=== PATIENT | male | born 1975 | race American Indian/Alaskan Native ===

== ENCOUNTER 2018-02-19 08:45 | Emergency (ER) | payer SELFPAY ==
[2018-02-19 09:23] LABS: Basophils % (Auto) 0.4 % (0.0-1.8); Eosinophils % (Auto) 0.2 % (0.0-4.3); Hematocrit 48.7 % (35.5-45.6); Hemoglobin 16.2 gm/dl (11.8-15.2); Lymphocytes # (Auto) 1.1 K/mm3 (1.2-5.4); Lymphocytes % (Auto) 10.7 % (13.4-35.0); Mean Corpuscular HGB Conc 33 % (32-34); Mean Corpuscular Hemoglobin 30 pg (28-32); Mean Corpuscular Volume 91 fl (84-94); Monocytes # (Auto) 0.8 K/mm3 (0.0-0.8); Monocytes % (Auto) 7.5 % (0.0-7.3); Platelet Count 328 K/mm3 (140-440); Red Blood Count 5.36 M/mm3 (3.65-5.03); Red Cell Distribution Width 13.1 % (13.2-15.2)
[2018-02-19 09:52] LABS: Bilirubin,Urine NEG (Negative); Blood,Urine NEG (Negative); Color,Urine Amber (Yellow); Granular Casts,Urine 6 /LPF; Mucus,Urine FEW /HPF
[2018-02-19 10:40] LABS: Alanine Aminotransferase 9 units/L (7-56); Albumin 4.6 g/dL (3.9-5); BUN/Creatinine Ratio 16; Blood Urea Nitrogen 16 mg/dL (9-20); Hemolysis Index 20
[2018-02-19 10:50] LABS: Lipase 461 units/L (13-60)
[2018-02-19] MEDS ORDERED: NORCO 5/325 PO ONE (15:39)
[2018-02-19] MEDS ORDERED: ZOFRAN ODT PO ONE (15:39)
[2018-02-19 15:55] VITALS: BP 141/101
[2018-02-19] MEDS ORDERED: TORADOL IV ONE ×2 (22:26→22:46)
[2018-02-19] MEDS ORDERED: ZOFRAN ONE (22:45)
[2018-02-19] MEDS ORDERED: ZOFRAN IV ONE (22:46)
--- NOTE | 2018-02-20 00:27 | Cat Scan Report ---
FINAL REPORT EXAM: CT ABDOMEN PELVIS W CON HISTORY: Abdominal pain TECHNIQUE: CT evaluation performed of the abdomen and pelvis following IV contrast administration. Additional axial delayed images were obtained. Coronal and sagittal reformatted images were provided. PRIORS: CT dated 09/13/2016. FINDINGS: Lower thorax: The lung bases are clear. The visualized portions of the heart are normal. Liver: No focal lesions identified of the liver. No intrahepatic biliary ductal dilation. Gallbladder/ biliary system: No cholelithiasis. No extrahepatic biliary ductal dilation. Spleen: No splenic lesions are seen. Pancreas: The pancreas is diffusely edematous and enlarged with marked adjacent intra-abdominal free fluid. There is no focal peripherally enhancing fluid collection, and glandular enhancement pattern appears mildly globally decreased without focal area of nonenhancement. Kidneys: No kidney lesions identified. No hydronephrosis. No ureteral or renal calcifications. Ureters are unremarkable. Adrenal glands: No adrenal masses. Vasculature: The abdominal and pelvic vasculature demonstrates a normal noncontrasted appearance. The splenic artery is patent. Bowel, mesentery, peritoneum: No bowel obstruction. No colonic diverticulosis. The appendix is incompletely evaluated however there is no right lower quadrant inflammatory change. Moderate volume free intraperitoneal low-attenuation fluid. Urinary bladder: No calculi or wall thickening. Abdominal wall: No abdominal wall hernia or subcutaneous findings. Bones: No acute osseous abnormality. IMPRESSION: Diffuse enlargement of the pancreatic gland with mild global hypoenhancement and adjacent edema about the gland, anterior pararenal space and extending into the dependent pelvis. No focal nonenhancement to suggest pancreatic necrosis or adjacent peripherally enhancing fluid collection. Correlation with clinical history and laboratory values requested.
[2018-02-20] MEDS ORDERED: NACL 0.9% 1000 ML 1,000 ML IV ONE (00:57)
--- NOTE | 2018-02-20 01:04 | Emergency Department Report ---
ED Abdominal Pain HPI - General Chief Complaint: Abdominal Pain Stated Complaint: ABD PAIN Time Seen by Provider: 02/20/18 00:58 Source: patient Mode of arrival: Ambulatory Limitations: No Limitations - History of Present Illness Initial Comments: Patient is a 42-year-old male with a history of pancreatitis 2 years who presents to ED complaining of abdominal pain and nausea and vomiting 3 days. Patient states for the past 3 days has been having generalized abdominal pain with nausea and inability to keep foods down. Patient states that would have a little bit of water but could not keep it down. He denies fevers/chills/ diarrhea or constipation. Patient states he does not take any medication does not have a primary care doctor at the moment. MD Complaint: abdominal pain Severity scale (0 -10): 1 - Related Data Previous Rx's Medication Instructions Recorded Last Taken Type Folic Acid [Folvite] 1 mg PO QDAY #30 tablet 09/14/16 Unknown Rx Ondansetron [Zofran Odt] 4 mg PO Q8HR PRN #15 tab.rapdis 09/14/16 Unknown Rx Thiamine [Vitamin B-1] 100 mg PO QDAY #30 tablet 09/14/16 Unknown Rx HYDROcodone/APAP 5-325 [[place] 1 each PO Q6HR PRN #20 tablet 02/20/18 Unknown Rx 5/325] Multivitamin Tab [Multiple Vitamin 1 each PO QDAY #30 tablet 02/20/18 Unknown Rx TAB (Theragran)] Naproxen [Naprosyn] 500 mg PO BID #40 tablet 02/20/18 Unknown Rx Ondansetron [Zofran TAB] 8 mg PO Q8HR PRN #40 tablet 02/20/18 Unknown Rx Allergies Allergy/AdvReac Type Severity Reaction Status Date / Time No Known Allergies Allergy Unverified 09/13/16 16:12 ED Review of Systems ROS: Stated complaint: ABD PAIN Other details as noted in HPI Constitutional: denies: chills, fever Eyes: denies: eye pain, eye discharge, vision change ENT: denies: ear pain, throat pain Respiratory: denies: cough, shortness of breath, wheezing Cardiovascular: denies: chest pain, palpitations Endocrine: no symptoms reported Gastrointestinal: denies: abdominal pain, nausea, diarrhea Genitourinary: denies: urgency, dysuria Musculoskeletal: denies: back pain, joint swelling, arthralgia Skin: denies: rash, lesions Neurological: denies: headache, weakness, paresthesias Psychiatric: denies: anxiety, depression Hematological/Lymphatic: denies: easy bleeding, easy bruising ED Past Medical Hx - Past Medical History Previous Medical History?: Yes Additional medical history: pancreatitis - Surgical History Past Surgical History?: No - Social History Smoking Status: Current Every Day Smoker Substance Use Type: Alcohol, Marijuana - Medications Home Medications: Home Medications Medication Instructions Recorded Confirmed Last Taken Type Folic Acid [Folvite] 1 mg PO QDAY #30 tablet 09/14/16 Unknown Rx Ondansetron [Zofran Odt] 4 mg PO Q8HR PRN #15 tab.rapdis 09/14/16 Unknown Rx Thiamine [Vitamin B-1] 100 mg PO QDAY #30 tablet 09/14/16 Unknown Rx HYDROcodone/APAP 5-325 [[place] 1 each PO Q6HR PRN #20 tablet 02/20/18 Unknown Rx 5/325] Multivitamin Tab [Multiple Vitamin 1 each PO QDAY #30 tablet 02/20/18 Unknown Rx TAB (Theragran)] Naproxen [Naprosyn] 500 mg PO BID #40 tablet 02/20/18 Unknown Rx Ondansetron [Zofran TAB] 8 mg PO Q8HR PRN #40 tablet 02/20/18 Unknown Rx ED Physical Exam - General Limitations: No Limitations General appearance: alert, in no apparent distress - Head Head exam: Present: atraumatic, normocephalic - Eye Eye exam: Present: normal appearance - ENT ENT exam: Present: mucous membranes moist - Neck Neck exam: Present: normal inspection - Respiratory Respiratory exam: Present: normal lung sounds bilaterally. Absent: respiratory distress - Cardiovascular Cardiovascular Exam: Present: regular rate, normal rhythm. Absent: systolic murmur, diastolic murmur, rubs, gallop - GI/Abdominal GI/Abdominal exam: Present: soft, normal bowel sounds - Rectal Rectal exam: Present: deferred - Extremities Exam Extremities exam: Present: normal inspection - Back Exam Back exam: Present: normal inspection - Neurological Exam Neurological exam: Present: alert, oriented X3 - Psychiatric Psychiatric exam: Present: normal affect, normal mood - Skin Skin exam: Present: warm, dry, intact, normal color. Absent: rash ED Course Vital Signs 02/19/18 02/19/1802/19/18 09:03 15:45 16:53 Temperature 97.6 F 98.3 F Pulse Rate 102 H 104 H Respiratory 18 16 18 Rate Blood Pressure 138/92 Blood Pressure 141/101 [Right] O2 Sat by Pulse 100 100 Oximetry 02/19/18 22:54 Temperature Pulse Rate Respiratory 18 Rate Blood Pressure Blood Pressure [Right] O2 Sat by Pulse Oximetry - Reevaluation(s) Reevaluation #1: Patient is resting comfortably in his ED. Stable, states pain is resolved Abdominal examination shows no guarding, nontender to palpation in all quadrants No active vomiting 02/20/18 01:03 Reevaluation #2: Patient received 250 mg of Toradol IV. Patient is still stable in no acute distress no vomiting noted. Abdomen exam still norm, no fever vital signs stable 02/20/18 02:15 ED Medical Decision Making - Lab Data Result diagrams: 02/19/18 09:08 02/19/18 09:08 Lab Results 02/19/18 02/19/18 02/19/18 Range/Units 09:08 09:08 Unknown WBC 10.7 (4.5-11.0) K/mm3 RBC 5.36 H (3.65-5.03) M/mm3 Hgb 16.2 H (11.8-15.2) gm/dl Hct 48.7 H (35.5-45.6) % MCV 91 (84-94) fl MCH 30 (28-32) pg MCHC 33 (32-34) % RDW 13.1 L (13.2-15.2) % Plt Count 328 (140-440) K/mm3 Lymph % (Auto) 10.7 L (13.4-35.0) % [place] % (Auto) 7.5 H (0.0-7.3) % Eos % (Auto) 0.2 (0.0-4.3) % Baso % (Auto) 0.4 (0.0-1.8) % Lymph # 1.1 L (1.2-5.4) K/mm3 [place] # 0.8 (0.0-0.8) K/mm3 Eos # 0.0 (0.0-0.4) K/mm3 Baso # 0.0 (0.0-0.1) K/mm3 Seg Neutrophils % 81.2 H (40.0-70.0) % Seg Neutrophils # 8.7 H (1.8-7.7) K/mm3 Sodium 139 (137-145) mmol/L Potassium 3.8 (3.6-5.0) mmol/L Chloride 87.4 L (98-107) mmol/L Carbon Dioxide 28 (22-30) mmol/L Anion Gap 27 mmol/L BUN 16 (9-20) mg/dL Creatinine 1.0 (0.8-1.5) mg/dL Estimated GFR > 60 ml/min BUN/Creatinine Ratio 16 % Glucose 136 H (75-100) mg/dL Calcium 10.0 (8.4-10.2) mg/dL Total Bilirubin 0.40 (0.1-1.2) mg/dL AST 17 (5-40) units/L ALT 9 (7-56) units/L Alkaline Phosphatase 87 (35-129) units/L Total Protein 9.0 H (6.3-8.2) g/dL Albumin 4.6 (3.9-5) g/dL Albumin/Globulin Ratio 1.0 % Lipase 461 H (13-60) units/L Urine Color Jade (Yellow) Urine Turbidity Clear (Clear) Urine pH 5.0 (5.0-7.0) Ur Specific [place] 1.029 (1.003-1.030) Urine Protein 100 mg/dl (Negative) mg/dL Urine Glucose (UA) Neg (Negative) mg/dL Urine Ketones 20 (Negative) mg/dL Urine Blood Neg (Negative) Urine Nitrite Neg (Negative) Urine Bilirubin Neg (Negative) Urine Urobilinogen 2.0 (<2.0) mg/dL Ur Leukocyte Esterase Sm (Negative) Urine WBC (Auto) 24.0 H (0.0-6.0) /HPF Urine RBC (Auto) 5.0 (0.0-6.0) /HPF U Epithel Cells (Auto) 2.0 (0-13.0) /HPF Granular Casts 6 /LPF Urine Mucus Few /HPF - Radiology Data Radiology results: report reviewed, image reviewed - Medical Decision Making 42-year-old male presents with acute on chronic pancreatitis ED course: Patient received 1 L normal saline, and medication and Zofran for nausea CBC, CMP, urinalysis, CT scan all ordered No white count shown, lipase elevated greater than 400, CT scan as reported above Critical care attestation.: If time is entered above; I have spent that time in minutes in the direct care of this critically ill patient, excluding procedure time. ED Disposition Clinical Impression: Chronic pancreatitis Qualifiers: Pancreatitis type: unspecified pancreatitis type Qualified Code(s): K86.1 - Other chronic pancreatitis Disposition: TO HOME OR SELFCARE Is pt being admited?: No Does the pt Need Aspirin: No Condition: Stable Instructions: Pancreatitis (ED), Dehydration (ED) Additional Instructions: Make sure to follow up with the primary care physician as discussed. Take all your medications as you've been prescribed. If you have any worsening symptoms or develop new symptoms please return to ED immediately. Prescriptions: HYDROcodone/APAP 5-325 [[place] 5/325] 1 each PO Q6HR PRN #20 tablet PRN Reason: Pain Multivitamin Tab [Multiple Vitamin TAB (Theragran)] 1 each PO QDAY #30 tablet Naproxen [Naprosyn] 500 mg PO BID #40 tablet Ondansetron [Zofran TAB] 8 mg PO Q8HR PRN #40 tablet PRN Reason: Nausea Referrals: MARYBEL WHALEY MD [Primary Care Provider] - 3-5 Days [facility] [Provider Group] - 3-5 Days [facility] [Provider Group] - 3-[address] [facility] [place] [Outside] - 3-5 Days [facility] [Outside] - 3-5 Days [facility] [Outside] - 3-5 Days Forms: Accompanied Note, Work/School Release Form(ED) Time of Disposition: 02:20
[2018-02-20] MEDS ORDERED: TORADOL IV ONE (02:08)
== END 2018-02-20 02:45 | disposition home or self-care (01) ==
LOC: ED 08:45
DX: K86.1 Other chronic pancreatitis (principal); F17.200 Nicotine dependence, unspecified, uncomplicated; F12.10 Cannabis abuse, uncomplicated
CPT/HCPCS: 36415; 74177; 80053; 81001; 83690; 85025; 96361; 96374; 96375; 99284; J1885; J2405; J7030; Q9967; Q0162

== ENCOUNTER 2020-04-15 13:22 | Inpatient (IN) | payer SELFPAY ==
[2020-04-15 15:13] LABS: Bacteria,Urine 1+ /HPF (Negative); Bilirubin,Urine NEG (Negative); Blood,Urine SM (Negative); Color,Urine Yellow (Yellow); Mucus,Urine FEW /HPF; Urobilinogen,Urine < 2.0 mg/dL (<2.0)
[2020-04-15] MEDS ORDERED: MORPHINE 4 MG/1 ML INJ IV ONE ×2 (15:33→17:55)
[2020-04-15] MEDS ORDERED: ONDANSETRON 4 MG/2 ML INJ IV ONE (15:33)
[2020-04-15] MEDS ORDERED: SODIUM CHLORIDE 0.9% 1000 ML 1,000 ML IV ONE (15:33)
--- NOTE | 2020-04-15 15:43 | Emergency Department Report ---
ED Abdominal Pain HPI - General Chief Complaint: Abdominal Pain Stated Complaint: N/V/ABD PAIN Time Seen by Provider: 04/15/20 15:33 Source: patient Mode of arrival: Ambulatory Limitations: No Limitations - History of Present Illness Initial Comments: This is a 44-year-old male nontoxic, well nourished in appearance, no acute signs of distress presents to the ED with c/o of nausea and vomiting and abdominal pain 2 days. Patient describes vomiting as food content and yellow gastric acid. Patient describes abdominal pain as cramping and aching with level of 10/10 to left upper abdomen. Patient denies chest pain, short of breath, fever, hemoptysis, blood in stool, chills, headache, stiff neck, numbness or tingling. Patient denies any diarrhea or constipation. Denies any blood in stool. Patient denies any recent travels. Patient stated hx of pancreatitis and pain is similar. Patient stated her last alcoholic drink 5 days ago. Patient denies any drug allergies. MD Complaint: abdominal pain -: days(s) (2) Location: LUQ Radiation: none Migration to: no migration Severity: mild Severity scale (0 -10): 10 Quality: cramping, aching Consistency: constant Improves With: nothing Worsens With: nothing Associated Symptoms: nausea, vomiting. denies: diarrhea, fever, chills, constipation, dysuria, hematemesis, hematochezia, melena, hematuria, anorexia, syncope - Related Data Previous Rx's Medication Instructions Recorded Last Taken Type Folic Acid [Folvite] 1 mg PO QDAY #30 tablet 09/14/16 Unknown Rx Ondansetron [Zofran Odt] 4 mg PO Q8HR PRN #15 tab.rapdis 09/14/16 Unknown Rx Thiamine [Vitamin B-1] 100 mg PO QDAY #30 tablet 09/14/16 Unknown Rx HYDROcodone/APAP 5-325 [[place] 1 each PO Q6HR PRN #20 tablet 02/20/18 Unknown Rx 5/325] Multivitamin Tab [Multiple Vitamin 1 each PO QDAY #30 tablet 02/20/18 Unknown Rx TAB (Theragran)] Naproxen [Naprosyn] 500 mg PO BID #40 tablet 02/20/18 Unknown Rx Ondansetron (Nf) [Zofran TAB] 8 mg PO Q8HR PRN #40 tablet 02/20/18 Unknown Rx Allergies Allergy/AdvReac Type Severity Reaction Status Date / Time No Known Allergies Allergy Verified 04/15/20 14:21 ED Review of Systems ROS: Stated complaint: N/V/ABD PAIN Other details as noted in HPI Constitutional: denies: chills, fever Eyes: denies: eye pain, eye discharge, vision change ENT: denies: ear pain, throat pain Respiratory: denies: cough, shortness of breath, wheezing Cardiovascular: denies: chest pain, palpitations Endocrine: no symptoms reported Gastrointestinal: abdominal pain, nausea, vomiting. denies: diarrhea, constipation, hematemesis, melena, hematochezia Genitourinary: denies: urgency, dysuria Musculoskeletal: denies: back pain, joint swelling, arthralgia Skin: denies: rash, lesions Neurological: denies: headache, weakness, paresthesias Psychiatric: denies: anxiety, depression Hematological/Lymphatic: denies: easy bleeding, easy bruising ED Past Medical Hx - Past Medical History Previous Medical History?: Yes Additional medical history: pancreatitis - Surgical History Past Surgical History?: No - Social History Smoking Status: Current Every Day Smoker Substance Use Type: Alcohol - Medications Home Medications: Home Medications Medication Instructions Recorded Confirmed Last Taken Type Folic Acid [Folvite] 1 mg PO QDAY #30 tablet 09/14/16 Unknown Rx Ondansetron [Zofran Odt] 4 mg PO Q8HR PRN #15 tab.rapdis 09/14/16 Unknown Rx Thiamine [Vitamin B-1] 100 mg PO QDAY #30 tablet 09/14/16 Unknown Rx HYDROcodone/APAP 5-325 [[place] 1 each PO Q6HR PRN #20 tablet 02/20/18 Unknown Rx 5/325] Multivitamin Tab [Multiple Vitamin 1 each PO QDAY #30 tablet 02/20/18 Unknown Rx TAB (Theragran)] Naproxen [Naprosyn] 500 mg PO BID #40 tablet 02/20/18 Unknown Rx Ondansetron (Nf) [Zofran TAB] 8 mg PO Q8HR PRN #40 tablet 02/20/18 Unknown Rx ED Physical Exam - General Limitations: No Limitations General appearance: alert, in no apparent distress - Head Head exam: Present: atraumatic, normocephalic - Eye Eye exam: Present: normal appearance - Neck Neck exam: Present: normal inspection, full ROM. Absent: tenderness, meningismus, lymphadenopathy - Respiratory Respiratory exam: Present: normal lung sounds bilaterally. Absent: respiratory distress, wheezes, rales, rhonchi, stridor, chest wall tenderness, accessory muscle use, decreased breath sounds, prolonged expiratory - Cardiovascular Cardiovascular Exam: Present: regular rate, normal rhythm, normal heart sounds. Absent: irregular rhythm, systolic murmur, diastolic murmur, rubs, gallop - GI/Abdominal GI/Abdominal exam: Present: soft, tenderness (LUQ), normal bowel sounds. Absent: distended, guarding, rebound, rigid, diminished bowel sounds - Extremities Exam Extremities exam: Present: normal inspection, full ROM - Back Exam Back exam: Present: normal inspection, full ROM. Absent: tenderness, CVA te nderness (R), CVA tenderness (L), muscle spasm, paraspinal tenderness, vertebral tenderness, rash noted - Neurological Exam Neurological exam: Present: alert, oriented X3, normal gait - Psychiatric Psychiatric exam: Present: normal affect, normal mood - Skin Skin exam: Present: warm, dry, intact, normal color. Absent: rash ED Course Vital Signs 04/15/20 04/15/20 14:21 16:09 Temperature 97.7 F Pulse Rate 102 H 73 Respiratory 17 18 Rate Blood Pressure 149/79 Blood Pressure 140/105 [Left] O2 Sat by Pulse 99 100 Oximetry - Reevaluation(s) Reevaluation #1: 04/15/20 15:42 Patient is speaking in full sentences with no signs of distress noted. - Consultations Consultation #1: 04/15/20 17:52 Patient has been consulted with Ene Azevedo about patient history, physical exam, and labs/imaging studies and agrees for admission. Consultation #2: 04/15/20 17:56 Patient has been consulted with Dr. Wilcox about patient history, physical exam, and labs/CT and accepts patient to services. ED Medical Decision Making - Lab Data Result diagrams: 04/15/20 15:35 04/15/20 15:35 - Medical Decision Making 44-year-old male that presents with moderate acute pancreatitis. Patient is stable and was examined by me. After providing pain medication in the ER patient's pain has not resolved and patient still complaining of pain. Patient also will be admitted for intractable pain. Patient admitted with hospitalist for further evaluation and treatment. At time of admission, the patient does not seem toxic or ill in appearance. No acute signs of distress noted. Patient admission to discharge treatment plan of care. No further questions noted by the patient. Critical care attestation.: If time is entered above; I have spent that time in minutes in the direct care of this critically ill patient, excluding procedure time. ED Disposition Clinical Impression: Possible exposure to STD UTI (urinary tract infection) Qualifiers: Urinary tract infection type: site unspecified Hematuria presence: without hematuria Qualified Code(s): N39.0 - Urinary tract infection, site not specified Acute pancreatitis Qualifiers: Pancreatitis type: alcohol induced Acute pancreatitis complication: unspecified Qualified Code(s): K85.20 - Alcohol induced acute pancreatitis without necrosis or infection Disposition: 09 OP ADMIT IP TO THIS HOSP Is pt being admited?: Yes Condition: Stable
[2020-04-15 16:26] LABS: Basophils % (Auto) 0.2 % (0.0-1.8); Hematocrit 45.5 % (35.5-45.6); Hemoglobin 15.7 gm/dl (11.8-15.2); Lymphocytes # (Auto) 0.4 K/mm3 (1.2-5.4); Lymphocytes % (Auto) 4.6 % (13.4-35.0); Mean Corpuscular HGB Conc 35 % (32-34); Mean Corpuscular Volume 89 fl (84-94); Monocytes # (Auto) 0.6 K/mm3 (0.0-0.8); Monocytes % (Auto) 5.9 % (0.0-7.3); Platelet Count 292 K/mm3 (140-440); Red Blood Count 5.13 M/mm3 (3.65-5.03); Red Cell Distribution Width 13.2 % (13.2-15.2)
[2020-04-15 16:36] LABS: Alanine Aminotransferase 10 units/L (7-56); Albumin 5.3 g/dL (3.9-5); BUN/Creatinine Ratio 13; Blood Urea Nitrogen 14 mg/dL (9-20); Calcium 10.4 mg/dL (8.4-10.2); Hemolysis Index 31
[2020-04-15] MEDS ORDERED: HYDROmorphone 1 MG/1 ML INJ IV ONE (17:01)
--- NOTE | 2020-04-15 17:49 | Cat Scan Report ---
CT abdomen pelvis w con INDICATION: abd pain. TECHNIQUE: All CT scans at this location are performed using the following dose modulation technique: Automated exposure control. CONTRAST: Omnipaque 300, 100 cc IV injection. COMPARISON: None available. CT abdomen: The parenchymal organs are unremarkable in appearance other than diffuse pancreatic thick ening with adjacent fluid/inflammation. Negative for abdominal mass, fluid or inflammation. The bowel is not dilated or thickened. CT PELVIS: Small amount of pelvic free fluid. Negative for mass, fluid collection or inflammation. IMPRESSION: 1. Moderate acute pancreatitis. 2. Small amount of pelvic free fluid. Signer Name: Rafal Sapp MD Signed: 04/15/2020 5:44 PM Workstation Name: [id number]
[2020-04-15] MEDS ORDERED: AZITHROMYCIN 250 MG TAB PO ONE (17:58)
[2020-04-15] MEDS ORDERED: ACETAMINOPHEN 325 MG TAB PO PRN (22:22)
[2020-04-15] MEDS ORDERED: ONDANSETRON 4 MG/2 ML INJ IV PRN (22:22)
--- NOTE | 2020-04-15 22:30 | History and Physical Report ---
History of Present Illness Date of examination: 04/15/20 Date of admission: 04/15/20 21:33 Chief complaint: Abdominal pain Nausea and vomiting History of present illness: 44-year-old male presenting to the emergency room today complaining of nausea and vomiting which has been ongoing for the past 2 days. He has had associated abdominal pain. Abdominal pain is said to be crampy and on a scale of 10 was 10/10. Abdominal pain was more in the left upper abdomen. He denies any fever or chills, no chest pain or shortness of breath, no headaches or dizziness, no hematuria or dysuria, denies any bright red blood per rectum, patient denies any sick contacts and no recent travel. Vomitus is said to be nonprojectile and and was mainly food content. He has known history of pancreatitis in the past. He admits that he has some alcohol about 5 days ago. Work-up in the emergency room reveals pancreatitis and a UTI. Past History Past Medical History: other (History of pancreatitis) Past Surgical History: No surgical history Social history: smoking (Current daily smoker), alcohol abuse Family history: no significant family history Medications and Allergies Allergies Allergy/AdvReac Type Severity Reaction Status Date / Time No Known Allergies Allergy Verified 04/15/20 14:21 Home Medications Medication Instructions Recorded Confirmed Last Taken Type No Known Home Medications [No 04/16/20 04/16/20 Unknown History Reported Home Medications] Active Meds: Active Medications Acetaminophen (Tylenol) 650 mg PO Q4H PRN PRN Reason: Pain MILD(1-3)/Fever >100.5/LUCAS Sodium Chloride (Nacl 0.9% 1000 Ml) 1,000 mls @ 150 mls/hr IV DIRECT FAWN Ceftriaxone Sodium (Rocephin/Ns 1 Gm/50 Ml) 1 gm in 50 mls @ 100 mls/hr IV Q24HR FAWN; Protocol Morphine Sulfate (Morphine) 4 mg IV Q4H PRN PRN Reason: Pain , Severe (7-10) Ondansetron HCl (Zofran) 4 mg IV Q8H PRN PRN Reason: Nausea And Vomiting Sodium Chloride (Sodium Chloride Flush Syringe 10 Ml) 10 ml IV BID FAWN Sodium Chloride (Sodium Chloride Flush Syringe 10 Ml) 10 ml IV PRN PRN PRN Reason: LINE FLUSH Review of Systems Constitutional: no fever, no chills Cardiovascular: no chest pain, no palpitations, no syncope Respiratory: no cough, no shortness of breath, no congestion Gastrointestinal: abdominal pain, nausea, vomiting Genitourinary Male: no dysuria, no hematuria Musculoskeletal: no neck pain, no low back pain Integumentary: no rash, no pruritis Neurological: no headaches, no confusion Psychiatric: no anxiety, no depression Exam - Constitutional Vitals: Temp Pulse Resp BP Pulse Ox 97.7 F 73 18 140/105 100 04/15/20 14:21 04/15/20 16:09 04/15/20 19:17 04/15/20 16:09 04/15/20 16:09 General appearance: Present: no acute distress, well-nourished - EENT Eyes: Present: EOM intact ENT: hearing intact, clear oral mucosa, dentition normal - Neck Neck: Present: supple, normal ROM - Respiratory Respiratory effort: normal Respiratory: bilateral: CTA - Cardiovascular Rhythm: regular Heart Sounds: Present: S1 & S2 - Extremities Extremities: no ischemia, pulses intact, pulses symmetrical, No edema, Full ROM Peripheral Pulses: within normal limits - Abdominal General gastrointestinal: Present: soft, non-tender, non-distended, normal bowel sounds - Integumentary Integumentary: Present: clear, warm, dry - Musculoskeletal Musculoskeletal: strength equal bilaterally - Psychiatric Psychiatric: appropriate mood/affect, intact judgment & insight, cooperative - Neurologic Neurologic: CNII-XII intact, moves all extremities Results - Labs CBC & Chem 7: 04/16/20 04:49 04/16/20 04:49 Labs: Abnormal lab results 04/15/20 04/15/20 04/15/20 Range/Units 15:35 15:35 Unknown RBC 5.13 H (3.65-5.03) M/mm3 Hgb 15.7 H (11.8-15.2) gm/dl MCHC 35 H (32-34) % Lymph % (Auto) 4.6 L (13.4-35.0) % Lymph # 0.4 L (1.2-5.4) K/mm3 Seg Neutrophils % 89.3 H (40.0-70.0) % Seg Neutrophils # 8.5 H (1.8-7.7) K/mm3 Chloride 97.0 L (98-107) mmol/L Glucose 137 H (75-100) mg/dL Calcium 10.4 H (8.4-10.2) mg/dL Total Protein 8.5 H (6.3-8.2) g/dL Albumin 5.3 H (3.9-5) g/dL Lipase 759 H (13-60) units/L Urine WBC (Auto) 60.0 H (0.0-6.0) /HPF Assessment and Plan - Patient Problems (1) Acute pancreatitis Current Visit: Yes Status: Acute Qualifiers: Pancreatitis type: alcohol induced Acute pancreatitis complication: unspecified Qualified Code(s): K85.20 - Alcohol induced acute pancreatitis without necrosis or infection Plan to address problem: Patient admitted and placed on IV fluid and IV analgesic medication. He is made n.p.o. We will monitor lipase level. (2) UTI (urinary tract infection) Current Visit: Yes Status: Acute Qualifiers: Urinary tract infection type: site unspecified Hematuria presence: without hematuria Qualified Code(s): N39.0 - Urinary tract infection, site not specified Plan to address problem: Patient placed on empiric IV antibiotics. We we will also await urine culture results. (3) ETOH abuse Current Visit: No Status: Acute Plan to address problem: Patient counseled on quitting alcohol abuse. We also monitor for withdrawal symptoms. (4) DVT prophylaxis Current Visit: No Status: Acute Plan to address problem: Patient placed on subcutaneous heparin. (5) Full code status Current Visit: Yes Status: Acute
[2020-04-15] MEDS: SODIUM CHLORIDE 0.9% 1000 ML 1,000 ML IV SCH (22:56)
[2020-04-15] MEDS: MORPHINE 4 MG/1 ML INJ IV PRN (22:56)
[2020-04-16] MEDS: MORPHINE 4 MG/1 ML INJ IV PRN ×5 (03:26→20:48)
[2020-04-16 05:05] LABS: Basophils % (Auto) 0.3 % (0.0-1.8); Eosinophils % (Auto) 0.1 % (0.0-4.3); Hematocrit 41.5 % (35.5-45.6); Hemoglobin 14.2 gm/dl (11.8-15.2); Lymphocytes # (Auto) 0.9 K/mm3 (1.2-5.4); Mean Corpuscular HGB Conc 34 % (32-34); Mean Corpuscular Volume 88 fl (84-94); Monocytes % (Auto) 8.6 % (0.0-7.3); Platelet Count 265 K/mm3 (140-440); Red Cell Distribution Width 13.3 % (13.2-15.2)
[2020-04-16 05:14] LABS: INR 0.98 (0.87-1.13)
[2020-04-16 05:15] LABS: Partial Thromboplastin Time 26.6 Sec. (24.2-36.6)
[2020-04-16] MEDS: SODIUM CHLORIDE 0.9% 1000 ML 1,000 ML IV SCH ×3 (05:24→20:42)
[2020-04-16 05:30] LABS: BUN/Creatinine Ratio 16; Blood Urea Nitrogen 11 mg/dL (9-20); Calcium 9.4 mg/dL (8.4-10.2); Hemolysis Index 11
[2020-04-16] MEDS ORDERED: LORazepam 2 MG/ML VIAL IV PRN ×3 (08:00)
[2020-04-16] MEDS: cefTRIAXone/NS 1 GM/50 ML 1 GM/50 ML BAG IV SCH (09:46)
--- NOTE | 2020-04-16 11:29 | Progress Note ---
Assessment and Plan Assessment and plan: Acute pancreatitis. Continue IV fluids hydration. Continue pain control. Advance diet as tolerated. Follow serial lipase UTI. Continue IV antibiotics. EtOH abuse. Continue CIWA protocol. Patient was counseled on alcohol cessation. DVT prophylaxis History Interval history: No new issues overnight. Patient reports abdominal pain is better. Hospitalist Physical - Constitutional Vitals: Temp Pulse Resp BP Pulse Ox 98.4 F 84 20 147/90 99 04/16/20 07:48 04/16/20 07:48 04/16/20 07:56 04/16/20 07:48 04/16/20 07:48 General appearance: Present: no acute distress, well-nourished - EENT Eyes: Present: PERRL, EOM intact ENT: hearing intact, clear oral mucosa, dentition normal - Neck Neck: Present: supple, normal ROM - Respiratory Respiratory effort: normal Respiratory: bilateral: CTA - Cardiovascular Rhythm: regular Heart Sounds: Present: S1 & S2. Absent: gallop, rub - Extremities Extremities: no ischemia, No edema, Full ROM - Abdominal General gastrointestinal: soft, non-tender, non-distended, normal bowel sounds - Integumentary Integumentary: Present: clear, warm, dry - Neurologic Neurologic: CNII-XII intact, moves all extremities Results - Labs CBC & Chem 7: 04/16/20 04:49 04/16/20 04:49 Labs: Laboratory Last Values WBC 11.1 K/mm3 (4.5-11.0) H 04/16/20 04:49 RBC 4.70 M/mm3 (3.65-5.03) 04/16/20 04:49 Hgb 14.2 gm/dl (11.8-15.2) 04/16/20 04:49 Hct 41.5 % (35.5-45.6) 04/16/20 04:49 MCV 88 fl (84-94) 04/16/20 04:49 MCH 30 pg (28-32) 04/16/20 04:49 MCHC 34 % (32-34) 04/16/20 04:49 RDW 13.3 % (13.2-15.2) 04/16/20 04:49 Plt Count 265 K/mm3 (140-440) 04/16/20 04:49 Lymph % (Auto) 8.0 % (13.4-35.0) L 04/16/20 04:49 [place] % (Auto) 8.6 % (0.0-7.3) H 04/16/20 04:49 Eos % (Auto) 0.1 % (0.0-4.3) 04/16/20 04:49 Baso % (Auto) 0.3 % (0.0-1.8) 04/16/20 04:49 Lymph # 0.9 K/mm3 (1.2-5.4) L 04/16/20 04:49 [place] # 1.0 K/mm3 (0.0-0.8) H 04/16/20 04:49 Eos # 0.0 K/mm3 (0.0-0.4) 04/16/20 04:49 Baso # 0.0 K/mm3 (0.0-0.1) 04/16/20 04:49 Seg Neutrophils % 83.0 % (40.0-70.0) H 04/16/20 04:49 Seg Neutrophils # 9.3 K/mm3 (1.8-7.7) H 04/16/20 04:49 PT 13.1 Sec. (12.2-14.9) 04/16/20 04:49 INR 0.98 (0.87-1.13) 04/16/20 04:49 APTT 26.6 Sec. (24.2-36.6) 04/16/20 04:49 Sodium 143 mmol/L (137-145) 04/16/20 04:49 Potassium 4.9 mmol/L (3.6-5.0) 04/16/20 04:49 Chloride 101.9 mmol/L (98-107) 04/16/20 04:49 Carbon Dioxide 26 mmol/L (22-30) 04/16/20 04:49 Anion Gap 20 mmol/L 04/16/20 04:49 BUN 11 mg/dL (9-20) 04/16/20 04:49 Creatinine 0.7 mg/dL (0.8-1.5) L 04/16/20 04:49 Estimated GFR > 60 ml/min 04/16/20 04:49 BUN/Creatinine Ratio 16 % 04/16/20 04:49 Glucose 107 mg/dL (75-100) H 04/16/20 04:49 Calcium 9.4 mg/dL (8.4-10.2) 04/16/20 04:49 Total Bilirubin 0.40 mg/dL (0.1-1.2) 04/15/20 15:35 AST 23 units/L (5-40) 04/15/20 15:35 ALT 10 units/L (7-56) 04/15/20 15:35 Alkaline Phosphatase 90 units/L (35-129) 04/15/20 15:35 Total Protein 8.5 g/dL (6.3-8.2) H 04/15/20 15:35 Albumin 5.3 g/dL (3.9-5) H 04/15/20 15:35 Albumin/Globulin Ratio 1.7 % 04/15/20 15:35 Lipase 759 units/L (13-60) H 04/15/20 15:35 Urine Color Yellow (Yellow) 04/15/20 Unknown Urine Turbidity Slightly-cloudy (Clear) 04/15/20 Unknown Urine pH 5.0 (5.0-7.0) 04/15/20 Unknown Ur Specific [place] 1.016 (1.003-1.030) 04/15/20 Unknown Urine Protein 100 mg/dl mg/dL (Negative) 04/15/20 Unknown Urine Glucose (UA) 50 mg/dL (Negative) 04/15/20 Unknown Urine Ketones 20 mg/dL (Negative) 04/15/20 Unknown Urine Blood Sm (Negative) 04/15/20 Unknown Urine Nitrite Neg (Negative) 04/15/20 Unknown Urine Bilirubin Neg (Negative) 04/15/20 Unknown Urine Urobilinogen < 2.0 mg/dL (<2.0) 04/15/20 Unknown Ur Leukocyte Esterase Sm (Negative) 04/15/20 Unknown Urine WBC (Auto) 60.0 /HPF (0.0-6.0) H 04/15/20 Unknown Urine RBC (Auto) 4.0 /HPF (0.0-6.0) 04/15/20 Unknown U Epithel Cells (Auto) 7.0 /HPF (0-13.0) 04/15/20 Unknown Urine Bacteria (Auto) 1+ /HPF (Negative) 04/15/20 Unknown Ur Transition Epith Cell 1 /HPF 04/15/20 Unknown Urine Mucus Few /HPF 04/15/20 Unknown Avina/IV: Voiding Method Urinal IV Catheter Type [Left Forearm INT / Saline Lock ] Active Medications - Current Medications Current Medications: Generic Name Dose Route Start Last Admin Trade Name Freq PRN Reason Stop Dose Admin Acetaminophen 650 mg 04/15/20 22:22 Tylenol PO Q4H PRN Pain MILD(1-3)/Fever >100.5/LUCAS Heparin Sodium (Porcine) 5,000 unit 04/16/20 14:00 Heparin SUB-Q Q8HR FAWN Sodium Chloride 1,000 mls @ 150 mls/hr 04/15/20 22:30 04/16/20 05:24 Nacl 0.9% 1000 Ml IV 150 mls/hr DIRECT FAWN Administration Ceftriaxone Sodium 1 gm in 50 mls @ 100 mls/hr 04/16/20 10:00 04/16/20 09:46 Rocephin/Ns 1 Gm/50 Ml IV 100 mls/hr Q24HR FAWN Administration Protocol Lorazepam 2 mg 04/16/20 08:00 Ativan IV Q1HR PRN CIWA-Ar 8-15 Lorazepam 4 mg 04/16/20 08:00 Ativan IV Q15MIN PRN CIWA-Ar >25 Lorazepam 4 mg 04/16/20 08:00 Ativan IV Q1HR PRN CIWA-Ar 16-25 Morphine Sulfate 4 mg 04/15/20 22:22 04/16/20 07:56 Morphine IV 4 mg Q4H PRN Administration Pain , Severe (7-10) Ondansetron HCl 4 mg 04/15/20 22:22 Zofran IV Q8H PRN Nausea And Vomiting Sodium Chloride 10 ml 04/16/20 10:00 Sodium Chloride Flush Syringe 10 Ml IV BID FAWN Sodium Chloride 10 ml 04/15/20 22:22 Sodium Chloride Flush Syringe 10 Ml IV PRN PRN LINE FLUSH
[2020-04-16] MEDS: HEPARIN 5,000 UNIT/1 ML VIAL SUB-Q SCH ×3 (15:50→21:49)
[2020-04-17] MEDS: MORPHINE 4 MG/1 ML INJ IV PRN ×3 (01:09→10:01)
[2020-04-17] MEDS: SODIUM CHLORIDE 0.9% 1000 ML 1,000 ML IV SCH ×2 (03:34→10:04)
[2020-04-17] MEDS: HEPARIN 5,000 UNIT/1 ML VIAL SUB-Q SCH (05:31)
--- NOTE | 2020-04-17 09:56 | Discharge Summary ---
Providers - Providers Date of Admission: 04/15/20 21:33 Date of discharge: 04/17/20 Attending physician: WILLIAN LANIER Primary care physician: SKIING TEACHER Hospitalization Reason for admission: Pancreatitis, UTI Condition: Stable Hospital course: 44-year-old male presented through the emergency department with complaints of nausea, vomiting and abdominal pain. Patient was admitted with diagnosis of acute pancreatitis and UTI. CT scan revealed moderate acute pancreatitis. On admission, patient's lipase was noted be 759. Etiology of pancreatitis is secondary to EtOH abuse. Patient was counseled on alcohol cessation. Patient was treated with supportive care with IV fluid hydration and pain control. Patient also received IV antibiotics for the UTI. Lipase trended down towards normal and abdominal pain/nausea/vomiting resolved. Patient is felt to have received maximal hospital benefit and will be discharged home. Dedicated discharge time 35 minutes Disposition: DC-01 TO HOME OR SELFCARE Time spent for discharge: 35 - Discharge Diagnoses (1) Acute pancreatitis Status: Acute Qualifiers: Pancreatitis type: alcohol induced Acute pancreatitis complication: unsp ecified Qualified Code(s): K85.20 - Alcohol induced acute pancreatitis without necrosis or infection (2) UTI (urinary tract infection) Status: Acute Qualifiers: Urinary tract infection type: site unspecified Hematuria presence: without hematuria Qualified Code(s): N39.0 - Urinary tract infection, site not specified (3) ETOH abuse Status: Acute Core Measure Documentation - Palliative Care Palliative Care/ Comfort Measures: Not Applicable - Core Measures Any of the following diagnoses?: none Exam - Constitutional Vitals: Temp Pulse Resp BP Pulse Ox 98.4 F 84 18 150/94 100 04/17/20 07:39 04/17/20 07:39 04/17/20 07:39 04/17/20 07:39 04/17/20 07:39 General appearance: Present: no acute distress, well-nourished - EENT Eyes: Present: PERRL ENT: hearing intact, clear oral mucosa - Neck Neck: Present: supple, normal ROM - Respiratory Respiratory effort: normal Respiratory: bilateral: CTA - Cardiovascular Heart Sounds: Present: S1 & S2. Absent: rub, click - Extremities Extremities: pulses symmetrical, No edema Peripheral Pulses: within normal limits - Abdominal General gastrointestinal: Present: soft, non-tender, non-distended, normal bowel sounds Male genitourinary: Present: normal - Integumentary Integumentary: Present: clear, warm, dry - Musculoskeletal Musculoskeletal: gait normal, strength equal bilaterally - Psychiatric Psychiatric: appropriate mood/affect, intact judgment & insight - Neurologic Neurologic: CNII-XII intact, moves all extremities Plan Activity: advance as tolerated Weight Bearing Status: Weight Bear as Tolerated Diet: regular Follow up with: PRIMARY CARE,MD [Primary Care Provider] - 7 Days Prescriptions: Ciprofloxacin HCl [Ciprofloxacin TAB] 500 mg PO Q12HR #14 tab oxyCODONE /ACETAMINOPHEN [Percocet 5/325] 1 tab PO Q4HR #10 tab
[2020-04-17] MEDS: cefTRIAXone/NS 1 GM/50 ML 1 GM/50 ML BAG IV SCH (10:04)
[2020-04-17 14:16] VITALS: BP 150/92
== END 2020-04-17 14:29 | disposition home or self-care (01) | DRG 439 ==
LOC: ED 13:22 → 4A 21:33
PROVIDERS: ADMIT Internal Medicine Geriatric Medicine; ATTEND Hospitalist
DX: K85.20 Alcohol induced acute pancreatitis without necrosis or infection (principal); N39.0 Urinary tract infection, site not specified; F10.10 Alcohol abuse, uncomplicated; Y90.9 Presence of alcohol in blood, level not specified; F17.210 Nicotine dependence, cigarettes, uncomplicated; Z71.6 Tobacco abuse counseling
CPT/HCPCS: 36415; 74177; 80048; 80053; 81001; 83690; 85025; 85610; 85730; 87040; 87086; 99406; G0378; J0696; J1170; J1644; J2270; J2405; J7030; Q9967

== ENCOUNTER 2022-05-02 18:37 | Emergency (ER) | payer SELFPAY ==
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
== END 2022-05-02 20:40 | disposition home or self-care (01) ==
LOC: ED 18:37
DX: S01.81XA Laceration without foreign body of other part of head, initial encounter (principal); F17.200 Nicotine dependence, unspecified, uncomplicated; Z79.899 Other long term (current) drug therapy; V87.7XXA Person injured in collision between other specified motor vehicles (traffic), initial encounter; Y93.89 Activity, other specified; Y92.488 Other paved roadways as the place of occurrence of the external cause; Y99.8 Other external cause status
CPT/HCPCS: 99282